=== PATIENT | male | born 1940 ===

== ENCOUNTER 2018-10-30 10:13 | Outpatient (REF) | payer SELFPAY ==
[2018-10-30 10:54] LABS: Abs Immature Grans 0.02 k/cumm (0.0-0.09); Absolute Basophil Count 0.07 k/cumm (0.0-0.2); Absolute Eosinophil Count 0.73 k/cumm (0.0-0.7); Absolute Lymphocyte Count 1.27 k/cumm (1.2-3.4); Absolute Monocyte Count 1.34 k/cumm (0.11-0.7); Absolute Neutrophil Count 5.91 k/cumm (1.2-6.7); Basophils % 0.7; Eosinophils % 7.8; HCT 43.5 % (40.0-50.0); HGB 14.5 g/dL (13.5-17.5); Immature Grans % 0.2; Lymphocytes % 13.6; Mean Corp. HGB Concentration 33.3 g/dL (32.0-36.0); Mean Corpuscular Hemoglobin 29.3 pg (27.0-33.0); Mean Corpuscular Volume 87.9 fL (80-95); Mean Platelet Volume 11.3 fL (8.0-11.0); Monocytes % 14.3; Neutrophils % 63.4; Platelet Count 185 x1000/uL (130-400); RBC 4.95 m/cumm (4.50-6.00); RBC Distribution Width 16.2 % (11.8-14.1); White Blood Cell Count 9.34 k/cumm (4.4-10.8)
== END 2018-10-30 10:33 ==
LOC: LBN 10:13
PROVIDERS: Visit Provider Nurse Practitioner Family
DX: C34.92 Malignant neoplasm of unspecified part of left bronchus or lung (principal)
CPT/HCPCS: 85025